=== PATIENT | male | born 1960 | race Caucasian/White ===

== ENCOUNTER 2018-08-09 22:14 | Inpatient (IN) ==
[2018-08-10] MEDS ORDERED: QUELICIN IV ONE (00:10)
[2018-08-10] MEDS ORDERED: AMIDATE IV ONE (00:10)
[2018-08-10] MEDS ORDERED: QUELICIN ONE (00:13)
[2018-08-10] MEDS ORDERED: AMIDATE ONE (00:13)
[2018-08-10] MEDS ORDERED: FENTANYL IV ONE (00:18)
[2018-08-10] MEDS ORDERED: FENTANYL 1,000 MICROGM in NS 80 ML IV SCH (00:30)
[2018-08-10] MEDS ORDERED: NS 1,000 ML IV ONE ×3 (00:30→06:04)
[2018-08-10] MEDS ORDERED: NS 1,000 ML ONE (00:33)
[2018-08-10 00:36] LABS: INR 1.8; PROTIME 22.2 Seconds (11.0-16.0)
[2018-08-10 00:37] LABS: PTT 51.5 Seconds (22.3-41.8)
[2018-08-10 00:37] LABS: ALLEN TEST YES; BE 1.7 mmoll (-3.0-3.0); BLOOD TYPE ARTERIAL; HCO3-(ACT) 26.1 mmoll (20.0-26.0); METHB 0.8 % (0.0-1.5); O2(CT) 11.1 mL/dL (15.0-23.0); PCO2(98.6) 37 mmHg (35-45); PO2(98.6) 52 mmHg (60-100); SAMPLE BLOOD; THB 9.2 g/dL (11.5-17.4); pH(98.6) 7.45 (7.35-7.45)
[2018-08-10 00:38] LABS: BASO# 0.02 X1000 (0.0-0.2); BASO% 0.2 % (0.0-0.8); EOS# 0.01 X1000 (0.0-0.7); EOS% 0.1 % (0.0-10.0); HEMATOCRIT 33.3 % (42.0-52.0); HEMOGLOBIN 9.9 g/dL (14.0-18.0); IMM GRAN# 0.08 X1000 (0.0-0.04); IMM GRAN% 0.7 % (0.0-0.5); LYMPH# 0.81 X1000 (1.2-3.4); LYMPH% 6.7 % (20.5-51.1); MCH 25.8 PG (27-31); MCHC 29.7 g/dL (33-37); MCV 86.7 FL (81-99); MONO# 0.47 X1000 (0.11-0.59); MONO% 3.9 % (1.7-9.3); MPV 10.6 FL (7.4-10.4); NEUT# 10.71 X1000 (1.4-6.5); NEUT% 88.4 % (42.2-75.2); PLT 278 X1000 (130-400); RBC 3.84 XMIL (4.7-6.1)
[2018-08-10 00:40] LABS: MODALITY NRB; O2HB 85.7 % (95.0-99.0)
[2018-08-10] MEDS ORDERED: ZOSYN 3.375 GM in NS 50 ML IV ONE (01:03)
[2018-08-10] MEDS ORDERED: VANCOMYCIN 1 GM/NS 1 GM/250 ML IVPB IV ONE (01:03)
[2018-08-10 01:21] LABS: AGAP 18; ALB/GLOB RATIO 0.3; ALKALINE PHOSPHATASE 213 U/L (32-122); BUN 41 mg/dL (8-22); CALCIUM 8.4 mg/dL (8.8-10.2); CHLORIDE 97 mmol/L (98-107); CK PROFILE 26 U/L (24-204); COSMO 292; ESTIMATED GFR > 60; GLUCOSE 72 mg/dL (70-104); GOT 30 U/L (10-34); GPT 16 U/L (10-44); MAGNESIUM 2.1 mg/dL (1.5-2.7); POTASSIUM 4.5 mmol/L (3.5-5.1); SODIUM 142 mmol/L (136-145); TCO2 27 mmol/L (25-35); TOTAL BILIRUBIN 0.61 mg/dL (0.20-1.00); TOTAL PROTEIN 7.8 g/dL (6.3-8.3)
--- NOTE | 2018-08-10 01:39 | PROVIDER DOCUMENTATION ---
This chart was entered by Geraldine Waller Scribe, acting as scribe for Brooks Britt MD. HPI-Respiratory General - General Stated Complaint: ams Time Seen by Provider: 08/09/18 23:57 Source: EMS Allergies/Adverse Reactions: Patient Allergies Allergy/AdvReac Type Severity Reaction Status Date / Time No Known Allergies Allergy Verified 08/10/18 00:25 - History of Present Illness-Resp Nature of Presenting Problem: 57 yom presents w.ems w/cc pt is living in [facility] after suffering 2 [id number] strokes. 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 pt is unres ponsive and non verbal. Review of Systems - Adult - REVIEW OF SYSTEMS - ADULT Constitutional: reports: see HPI, other (unresponsive). denies: chills, fever, fatique, night sweats Eyes: reports: no symptoms reported Ears, Nose, Mouth & Throat: reports: no symptoms reported Cardiovascular: reports: no symptoms reported Respiratory: reports: see HPI, shortness of breath (78 02 in er). denies: cough, hemoptysis, pleurisy, wheezing Gastrointestinal: reports: no symptoms reported Genitourinary: reports: no symptoms reported Musculoskeletal: reports: no symptoms reported Integumentary: reports: no symptoms reported Neurological: reports: no symptoms reported Psychiatric: reports: no symptoms reported Endocrine: reports: no symptoms reported Hematologic/Lymphatic: reports: no symptoms reported Allergic/Immunologic: reports: no symptoms reported All Other Systems: Reviewed and Negative Past History - Adult - PAST MEDICAL HISTORY-ADULT Review of Records: reports: Old Records Reviewed, Nursing Assessment Review, Medications Reviewed, Social history reviewed & non-contributory. Major Childhood Illnesses: reports: denies history Cardiovascular: reports: denies history Respiratory: reports: denies history Gastrointestinal: reports: denies history Obstetrical/Gynecological: reports: denies history Genitourinary: reports: denies history Musculoskeletal: reports: denies history Neurological: reports: CVA (x2) Endocrine/Immune: reports: denies history Other Conditions: reports: denies history - IMMUNIZATION STATUS Childhood Immunizations: See Nurse Assessment Flu Vaccine: See Nurse Assessment - FAMILY HISTORY Family History: reviewed, not pertinent Physical Exam-General - PHYSICAL EXAM-ADULT Initial Vital Signs Reviewed: Yes - CONSTITUTIONAL General Appearance: mild distress, thin, lethargic, other (unresponsive). negative: appears well, alert, obese, anxious, combative - EYES Eyes: PERRL/EOMI - HEAD, EARS, NOSE, MOUTH & THROAT HENMT: normocephalic/atraumatic, moist mucous membranes, normal ENT inspection - NECK Neck: non-tender, full range of motion, supple, normal inspection - RESPIRATORY Respiratory: chest non-tender, lungs clear, normal breath sounds - CARDIOVASCULAR Cardiovascular: normal peripheral pulses, regular rate, rhythm - GASTROINTESTINAL (ABDOMEN) Abdominal Exam: normal bowel sounds, non tender, soft - LYMPHATIC Lymphatic: no adenopathy - MUSCULOSKELETAL Back Exam: normal inspection, no CVA tenderness, no vertebral tenderness Extremity: normal range of motion, non-tender, normal inspection Peripheral Pulses: radial (R): 2+, radial (L): 2+ - SKIN Integumentary: normal color, normal turgor, warm/dry - NEUROLOGIC Neurologic: other (pt unresponsive). negative: heel cover splitter II-XII nml as tested, grossly normal, no motor/sensory deficits, abnormal cerebellar tests, abnormal heel cover splitter II-XII, aphasia, EOM palsy, facial droop - PSYCHIATRIC Psych/Mental Status: disoriented x 3. negative: normal mood/affect, normal thought content, normal thought process, oriented x 3, paranoid, tearful Progress - PLAN OF CARE/RESULTS Progress/Plan/Lab Results: Vital Signs - 8 hr 08/09/18 22:35 08/10/18 00:16 Temperature 97.4 F L Pulse Rate 101 H 101 H Respiratory Rate 18 18 Blood Pressure 94/64 O2 Sat by Pulse Oximetry 78 L 100 Laboratory Results - last 24 hr 08/10/18 08/10/18 08/10/18 00:01 00:05 00:05 WBC 12.10 H RBC 3.84 L Hgb 9.9 L Hct 33.3 L MCV 86.7 MCH 25.8 L MCHC 29.7 L RDW Std Deviation 16.0 H Plt Count 278 MPV 10.6 H Immature Gran % (Auto) 0.7 H Neut % (Auto) 88.4 H Lymph % (Auto) 6.7 L [place] % (Auto) 3.9 Eos % (Auto) 0.1 Baso % (Auto) 0.2 Immature Gran # (Auto) 0.08 H Neut # (Auto) 10.71 H Lymph # (Auto) 0.81 L [place] # (Auto) 0.47 Eos # (Auto) 0.01 Baso # (Auto) 0.02 PT INR PTT (Actin FS) Specimen Type ARTERIAL Sample Site R RADIAL pH 7.45 pCO2 37 pO2 52 L HCO3 26.1 H Base Excess 1.7 Oxyhemoglobin 85.7 L* ABG O2 Sat (Calculated) 11.1 L ABG O2 Saturation 88.0 L ABG Carboxyhemoglobin 1.70 ABG Methemoglobin 0.8 Leon Test YES A-a O2 Difference 615.0 Total Hemoglobin 9.2 L Lactate 4.90 H Liter Flow 15.0 Blood Gas Modality NRB FiO2 % 100.0 Sodium 142 Potassium 4.5 Chloride 97 L Carbon Dioxide 27 Anion Gap 18 BUN 41 H Creatinine 1.0 Estimated GFR/1.73 m2 > 60 BUN/Creatinine Ratio 41 Glucose 72 Calculated Osmolality 292 Calcium 8.4 L Magnesium 2.1 Total Bilirubin 0.61 AST 30 ALT 16 Alkaline Phosphatase 213 H Creatine Kinase 26 Troponin T Total Protein 7.8 Albumin 2.0 L Globulin 5.8 Albumin/Globulin Ratio 0.3 Plasma Lactate 08/10/18 08/10/18 08/10/18 00:05 00:05 00:05 WBC RBC Hgb Hct MCV MCH MCHC RDW Std Deviation Plt Count MPV Immature Gran % (Auto) Neut % (Auto) Lymph % (Auto) [place] % (Auto) Eos % (Auto) Baso % (Auto) Immature Gran # (Auto) Neut # (Auto) Lymph # (Auto) [place] # (Auto) Eos # (Auto) Baso # (Auto) PT 22.2 H INR 1.80 PTT (Actin FS) 51.5 H Specimen Type Sample Site pH pCO2 pO2 HCO3 Base Excess Oxyhemoglobin ABG O2 Sat (Calculated) ABG O2 Saturation ABG Carboxyhemoglobin ABG Methemoglobin Leon Test A-a O2 Difference Total Hemoglobin Lactate Liter Flow Blood Gas Modality FiO2 % Sodium Potassium Chloride Carbon Dioxide Anion Gap BUN Creatinine Estimated GFR/1.73 m2 BUN/Creatinine Ratio Glucose Calculated Osmolality Calcium Magnesium Total Bilirubin AST ALT Alkaline Phosphatase Creatine Kinase Troponin T 0.029 Total Protein Albumin Globulin Albumin/Globulin Ratio Plasma Lactate 5.0 H Orders Category Date Time Status Cardiac Monitoring DIRECTED Care 08/09/18 23:57 Active IV Insertion ORDERED Care 08/09/18 23:57 Completed Notify MD of + Sepsis Screen NOW Care 08/09/18 23:57 Active Notify Physician As Ordered Care 08/09/18 23:57 Active CHEST-1 VIEW [RAD] Stat Exams 08/09/18 23:57 Taken ABG [RESP] Routine Lab 08/09/18 23:58 Completed BLOOD CULTURE [BLDCUL] Stat Lab 08/10/18 00:05 Results CBC WITH DIFF [HEME] Stat Lab 08/10/18 00:05 Completed CK PROFILE [SP CHEM] Stat Lab 08/10/18 00:05 Completed COMPREHENSIVE METABOLIC PANEL [CHEM] Stat Lab 08/10/18 00:05 Completed LACTATE, PLASMA [CHEM] Stat Lab 08/10/18 00:05 Completed MAGNESIUM [CHEM] Stat Lab 08/10/18 00:05 Completed PROTIME WITH INR [COAG] Stat Lab 08/10/18 00:05 Completed PTT [COAG] Stat Lab 08/10/18 00:05 Completed TROPONIN T Stat Lab 08/10/18 00:05 Completed URINALYSIS W/POSS RFLX CULT [URINALYSIS] Stat Lab 08/09/18 23:57 Uncollected 0.9% Sodium Chloride Inj [Ns] 1,000 ml Med 08/10/18 00:33 Discontinued .ROUTE As directed 0.9% Sodium Chloride Inj [Ns] 1,000 ml Med 08/10/18 00:30 Discontinued IV 999 mls/hr 0.9% Sodium Chloride Inj [Ns] 80 ml Med 08/10/18 00:30 Active Fentanyl 1,000 microgm IV As Directed mls/hr Etomidate [Amidate] Med 08/10/18 00:10 Discontinued 20 mg IV NOW ONE Etomidate [Amidate] Med 08/10/18 00:13 Discontinued 40 mg .ROUTE .STK-MED ONE Fentanyl Med 08/10/18 00:18 Discontinued See Dose Instructions IV NOW ONE Piperacillin/Tazobactam [Zosyn] 3.375 gm Med 08/10/18 01:03 Discontinued 0.9% Sodium Chloride Inj [Ns] 50 ml IV NOW Succinylcholine [Quelicin] Med 08/10/18 00:10 Discontinued 100 mg IV NOW ONE Succinylcholine [Quelicin] Med 08/10/18 00:13 Discontinued 200 mg .ROUTE .STK-MED ONE Vancomycin 1 gm/Ns Med 08/10/18 01:03 Active 1 gm in 250 ml IV NOW Oxygen Device Stat Oth 08/09/18 23:57 Completed Result Diagrams: 08/10/18 00:05 08/10/18 00:05 - EKG 1 Time of EKG reading by physician:: 23:48 EKG Read and Signed by:: Brooks Britt EKG Interpretation (*Must complete 3 of following elements*): Abnormal Rate: 88 Rhythm: SR w/occasional premature ventricular complexes QRS: normal ND Interval: normal Departure - Departure Date of Disposition Decision: 08/10/18 Time of Disposition Decision: 01:38 DIAGNOSIS: Pneumonia Qualifiers: Pneumonia type: due to unspecified organism Laterality: right Lung location: unspecified part of lung Qualified Code(s): J18.9 - Pneumonia, unspecified organism Disposition: ADMITTED INPATIENT 09 Certified Medical Emergency: Emergent Condition: Critical Referrals and Follow-Ups: None,PCP [Primary Care Provider] - - Critical Care Note This patient required my direct & personal management of CC.: No Attestation - Physician/ AMARI Attestation Patient care was provided by Advanced Practice Provider:: No The physician spent face to face time with patient:: Yes Advanced Practice Provider documentation review:: Supervising physician onsite and consulted in the evaluation and care of this patient. The physician did have a face to face encounter with the patient. This chart was documented by the indicated scribe, (Geraldine Waller Scribe) and accurately reflects the services I performed and decisions made by me, Brooks Suero MD, as attested by the provider's signature.
[2018-08-10] MEDS ORDERED: VANCOMYCIN IV PER PHARMACY MISC SCH (02:35)
[2018-08-10] MEDS ORDERED: TYLENOL PO PRN (02:35)
[2018-08-10] MEDS ORDERED: MORPHINE IV PRN ×2 (02:35→09:21)
[2018-08-10] MEDS ORDERED: ZOFRAN IV PRN (02:35)
[2018-08-10] MEDS ORDERED: LOVENOX SUBQ SCH (02:35)
[2018-08-10] MEDS: DIPRIVAN 1% 1,000 MG/100 ML BOTTLE IV SCH ×2 (03:00→05:54)
[2018-08-10] MEDS ORDERED: SODIUM CHLORIDE 0.9% INJ SCH (03:15)
[2018-08-10] MEDS ORDERED: PROTONIX IV SCH (03:15)
[2018-08-10] MEDS: NS 1,000 ML IV SCH ×3 (03:37→13:56)
[2018-08-10] MEDS ORDERED: VANCOMYCIN 500 MG/NS 500 MG/100 ML IVPB IV ONE (04:00)
[2018-08-10 04:33] LABS: INR 2.28; PROTIME 26.7 Seconds (11.0-16.0)
[2018-08-10 04:38] LABS: ESTIMATED GFR > 60
[2018-08-10 04:44] LABS: AGAP 18; ALB/GLOB RATIO 0.2; ALBUMIN 1.2 g/dL (3.5-5.0); ALKALINE PHOSPHATASE 156 U/L (32-122); BUN 41 mg/dL (8-22); CALCIUM 7.3 mg/dL (8.8-10.2); CHLORIDE 105 mmol/L (98-107); CK PROFILE 56 U/L (24-204); COSMO 295; CREATININE 1.1 mg/dL (0.7-1.2); GLUCOSE 72 mg/dL (70-104); GOT 25 U/L (10-34); GPT 13 U/L (10-44); POTASSIUM 3.9 mmol/L (3.5-5.1); SODIUM 144 mmol/L (136-145); TCO2 21 mmol/L (25-35); TOTAL BILIRUBIN 0.45 mg/dL (0.20-1.00); TOTAL PROTEIN 6.3 g/dL (6.3-8.3)
[2018-08-10 04:57] LABS: ALLEN TEST YES; BE -5.5 mmoll (-3.0-3.0); BLOOD TYPE ARTERIAL; HCO3-(ACT) 20.7 mmoll (20.0-26.0); METHB 1.1 % (0.0-1.5); O2(CT) 11.5 mL/dL (15.0-23.0); O2HB 96.5 % (95.0-99.0); PCO2(98.6) 39 mmHg (35-45); PO2(98.6) 131 mmHg (60-100); SAMPLE BLOOD; SAO2 98.8 % (95.0-100.0); SRATE 14 BPM; THB 8.3 g/dL (11.5-17.4); TVOL 550 mL; pH(98.6) 7.32 (7.35-7.45)
[2018-08-10 04:58] LABS: BASO# 0.01 X1000 (0.0-0.2); BASO% 0.1 % (0.0-0.8); EOS# 0.04 X1000 (0.0-0.7); EOS% 0.4 % (0.0-10.0); HEMATOCRIT 25.3 % (42.0-52.0); HEMOGLOBIN 8.1 g/dL (14.0-18.0); IMM GRAN# 0.77 X1000 (0.0-0.04); IMM GRAN% 8.1 % (0.0-0.5); LYMPH# 0.69 X1000 (1.2-3.4); LYMPH% 7.2 % (20.5-51.1); MCH 30.1 PG (27-31); MCV 94.1 FL (81-99); MONO# 0.25 X1000 (0.11-0.59); MONO% 2.6 % (1.7-9.3); MPV 11.1 FL (7.4-10.4); NEUT# 7.78 X1000 (1.4-6.5); NEUT% 81.6 % (42.2-75.2); PLT 147 X1000 (130-400); RBC 2.69 XMIL (4.7-6.1); RDW 15.5 % (11.5-14.5); WBC 9.54 X1000 (4.8-10.8)
[2018-08-10 04:58] LABS: MODALITY VENTILATOR
--- NOTE | 2018-08-10 05:02 | HISTORY AND PHYSICAL ---
REASON FOR ADMISSION: Found unresponsive and hypoxic yesterday night. HISTORY OF PRESENT ILLNESS: Mr. Kyle Bueno is an unfortunate 57-year-old man who has had 2 CVAs since September of last year resulting in permanent disability and subsequent 150- pound weight loss. He is now completely bedbound and he is a resident of one of our local nursing homes. He is barely responsive and he is in a contracted state. He is supposed to be under the care of hospice and he has always been on 2 L nasal cannula. Last night they found him unresponsive on his 2 L nasal cannula, but his O2 saturation was 44%. EMS was called. They put him on a nonrebreather. That bumped his O2 saturations to 79. However, the patient continued to be tachypneic and then subsequently required intubation. He is currently on a ventilator. His O2 saturation is 96% and this is on 100% FIO2. Unfortunately, the patient is not able to give me any history because he is sedated and there is no family member at bedside. Information was obtained from the intermediate records and from his nurse at bedside and ER physician. REVIEW OF SYSTEMS: Cannot be obtained. ALLERGIES: No known allergies. HOME MEDICATIONS: He is supposed to be on trazodone 50 mg daily, ?25 mg at bedtime, aspirin 325 mg daily, lorazepam 0.5 mg q.4, pravastatin 40 mg daily, Colace 100 mg daily, gabapentin 300 mg daily, MiraLAX 17 g daily, Remeron 15 mg daily, morphine sulfate 5 mL every 2 hours p.r.n., hydrocodone 10 mg daily, amlodipine 10 mg daily, Flomax 0.4 mg daily. PAST MEDICAL HISTORY: Notable for prior CVAs, hyperlipidemia, hypertension, BPH. FAMILY HISTORY: Cannot be obtained. SOCIAL HISTORY: Patient used to be a heavy smoker prior to his first stroke in September of last year. SURGICAL HISTORY: Cannot be obtained. DATA: White count 12,000, hemoglobin 10, hematocrit 33, platelets 278,000, 88% neutrophils. BUN 41, creatinine 1.0, calcium 8.4, alkaline phosphatase 203. Troponin 0.029. Lactate 5.0. PT is 32, INR 1.8, PTT 51. Blood gases: pH 7.45, pCO2 37, pO2 52, bicarbonate 26 on 100% nonrebreather at that time. Chest film shows right multilobar infiltrate and possible left lingular infiltrate. PHYSICAL EXAMINATION: GENERAL APPEARANCE: He is severe cachectic, a middle-aged man who appears older than his stated age. He is sedated, but will open his eyes transiently, but does not focus on anything in particular. He has an ET tube in place. HEAD AND EYES: Head is normocephalic, however, he has bitemporal wasting. Eyes are sunken in. Pupils are reactive to light. No nystagmus noted. Anicteric, not pale. VITAL SIGNS: Blood pressure 94/56, heart rate 85, respirations 18, temperature 97.4. He is 94% on mechanical ventilation, FIO2 100%. ENT: Exam was not done. He has no central cyanosis visualized. His lips are dry. NECK: Supple. No JVD, carotid bruits or thyromegaly. He has severely decreased skin turgor. CHEST: Coarse crepitations in the entire right lung with no wheezes. Decreased air entry on the right side, but does have a few crepitations in the upper regions of his lungs. CARDIOVASCULAR: First and second heart sounds heard. No gallops, murmurs or rubs. Rhythm is regular. ABDOMEN: Scaphoid, soft. No masses or organomegaly. Bowel sounds are hypoactive. RECTAL: Exam is deferred at this time. EXTREMITIES: The patient has barely palpable pulses distally, regular and symmetrical. No edema, clubbing or peripheral cyanosis. The patient has stage 4 decubitus of the right hip with tunneling and foul-smelling purulent necrotic material in the center of the ulcer. The patient has another stage 3-4 ulceration of the right lateral malleolar area stage 2-3 ulcer on the right plantar surface of his foot. I did not turn him over to evaluate the sacral area. NEUROLOGIC: The patient is contracted. Cannot really get any meaningful neurologic exam. SKIN: As above. He has severely decreased turgor. MUSCULAR: He has contractures of his hips, knees and the MCP points of his hands. There is diffuse sarcopenia noted. ASSESSMENT: 1. Early onset sepsis secondary to pneumonia. 2. Pneumonia, probably aspiration mechanism. 3. Severe protein calorie malnutrition. 4. Severe dehydration. 5. Prior chronic obstructive pulmonary disease. 6. History of hypertension. 7. Stage 4 decubitus ulcer of the right hip. 8. Vascular dementia from prior cerebrovascular accidents. 9. Acute respiratory failure secondary to aspiration pneumonia. 10.Anemia of chronic inflammation. PLAN: The patient will be started on the ventilator and will consult Pulmonology to assist with vent management. For now the patient will be covered for nosocomial pathogens with vancomycin and Zosyn. Breathing treatments will also be administered around the clock. The patient is showing signs of early onset sepsis and IV crystalloids will be given. Lactate levels will be tracked to document improvement. Once normalized, discontinue subsequent lactate levels. ABGs and chest films will be done daily. One is currently pending and will be modified accordingly. This patient's prognosis to me seems to be dismal in light of not only pneumonia, but his overall clinical condition. End of life issues need to be discussed more appropriately with the mother who is his next of kin. The patient's coagulation profiles are mildly elevated and this could hint at early onset DIC. Due to patient's severe malnourished state, I would recommend possibly in the short term tube feedings and consult a gypsum calciner for further input. TOTAL CRITICAL CARE TIME: Greater than 45 minutes. cc: Khoi Rashid MD MTDD
[2018-08-10] MEDS: DUONEB (A & A) INH SCH ×3 (05:23→15:56)
[2018-08-10] MEDS: ZOSYN 3.375 GM in NS 50 ML IV SCH ×2 (06:07→13:52)
[2018-08-10] MEDS: LEVOPHED 8 MG in D5 1/2 NS 250 ML IV SCH ×2 (06:15→13:57)
--- NOTE | 2018-08-10 07:14 | Diag Imaging Result Doc PS360 ---
EXAM: CHEST-1 VIEW 08/09/2018 HISTORY: sob TECHNIQUE: AP portable at 0026 COMMENT: There is an endotracheal tube with its tip at the thoracic inlet. There are dense coarse opacities throughout the right lung and to a lesser extent in the left lower lobe. The heart size and pulmonary vascularity are within normal limits. IMPRESSION: Severe bronchopneumonia. Advise follow-up until clear. Electronically signed by Chuck Gonzalez 08/10/2018 7:11 AM
--- NOTE | 2018-08-10 07:59 | EKG Report ---
Test Performed on : 08/09/2018 11:48:17 PM Test Reason : Blood Pressure : / mmHG Vent. Rate : 088 BPM Atrial Rate : 088 BPM P-R Int : 138 ms QRS Dur : 086 ms QT Int : 356 ms P-R-T Axes : 069 080 064 degrees QTc Int : 430 ms Sinus rhythm. with occasional premature ventricular complexes. Otherwise normal ECG No previous ECGs available Unconfirmed Result
[2018-08-10 08:31] LABS: URINE SOURCE CATH
[2018-08-10] MEDS ORDERED: ASPIRIN PO SCH (09:00)
[2018-08-10 09:14] LABS: BILIRUBIN URINE NEGATIVE (NEGATIVE); BLOOD URINE LARGE (NEGATIVE); COLOR ORANGE; GLUCOSE URINE NEGATIVE (NEGATIVE); KETONE URINE NEGATIVE (NEGATIVE); LEUKOCYTES URINE LARGE (NEGATIVE); NITRITE URINE NEGATIVE (NEGATIVE); PH URINE 5.5; PROTEIN URINE 70 mg/dL (NEGATIVE); SP GRAVITY URINE 1.019; TURBIDITY URINE TURBID (CLEAR); UROBILINOGEN URINE NORMAL (NORMAL)
[2018-08-10 09:15] LABS: UR EPITHELIAL CELLS <10 /HPF (<10); URINE BACTERIA 2+ /HPF; URINE RBC TNTC /HPF (<10); URINE WBC TNTC /HPF (<10)
[2018-08-10] MEDS ORDERED: SOLU-CORTEF IV ONE (09:20)
--- NOTE | 2018-08-10 09:24 | Diag Imaging Result Doc PS360 ---
EXAM: CHEST-PORTABLE 08/10/2018 HISTORY: vent TECHNIQUE: AP portable at 0909 COMMENT: The endotracheal tube is again noted at thoracic inlet. There is bilateral diffuse alveolar opacity particularly in the right upper lobe. Compared to the previous study of this date at 0026, there has been worsened opacification of the left lower lobe. IMPRESSION: Worsening pneumonia plus minus pulmonary edema. Electronically signed by Chuck Gonzalez 08/10/2018 9:22 AM
--- NOTE | 2018-08-10 09:26 | CONSULTATION ---
DATE OF CONSULTATION: 08/10/2018 CHIEF COMPLAINT: Difficulty with Fajardo catheter placement. HISTORY OF PRESENT ILLNESS: Mr. Guzman is a 57-year-old with history of 2 recent cerebrovascular accidents since September 2017, resulting in permanent disability and a substantial weight loss of approximately 150 pounds. He is a bed-bound resident of a local alf. The patient presented to the emergency room overnight due to hypoxemia with an O2 saturation of 44%. EMS was called, and he was transferred to the emergency room, where he was placed on a non-rebreather and his oxygen saturations improved. The patient was tachypneic and required intubation and to be placed on a ventilator. The patient's labs were sent, which showed a creatinine of 1.1 with a white blood cell count of 9 and a lactate of 5.7. The patient received multiple boluses of IV fluids to hypotension; however, patient has not been able to void, and multiple attempts for catheter placement were performed in the emergency room as well as in the ICU and described having a significant obstruction within the proximal urethra. Urology was consulted for further recommendations. No prior urologic evaluations were found in the computer, and the patient is intubated so unable to obtain any history. No family member at bedside. ALLERGIES: No known drug allergies . HOME MEDICATIONS: 1. Trazodone 50 mg. 2. Aspirin 325 mg 3. Lorazepam 0.5 mg q.4 h. 4. Pravastatin 40 mg daily. 5. Colace 100 mg daily. 6. Gabapentin 300 mg daily. 7. MiraLAX 17 g daily. 8. Remeron 50 mg daily. 9. Morphine sulfate 5 mL q.2 h. p.r.n. for pain. 10. Hydrocodone 10 mg daily. 11. Amlodipine 10 mg daily. 12. Flomax 0.4 mg daily. PAST MEDICAL HISTORY: 1. Cerebrovascular accident x2. 2. Hyperlipidemia. 3. Hypertension. 4. BPH. SOCIAL HISTORY: Unable to obtain. FAMILY HISTORY: Unable to obtain. PAST SOCIAL HISTORY: Heavy smoker prior to his first stroke back in September. REVIEW OF SYSTEMS: Unable to obtain due to intubation. PHYSICAL EXAMINATION: Vital Signs: Temperature 97 degrees, heart rate 82, blood pressure 56/47, oxygen saturation 97% on the ventilator. General: A Severely cachectic middle- aged male, who is sedated and unable to adequately open his eyes. Endotracheal tube is in place. The patient remains on the ventilator. HEENT: Normocephalic, atraumatic. Pupils equal and nonreactive to light and slightly dilated. Mucous membranes moist. Neck: Trachea midline. Endotracheal tube in place. Respiratory: On the ventilator. No audible wheezes, but coarse breath sounds in the lower lung rosa. Cardiovascular: S1, S2 heart sounds. No evidence of tachycardia. Abdomen: Soft, nontender, nondistended. No palpable hepatosplenomegaly. Genitourinary: No suprapubic tenderness. Uncircumcised phallus with hypospadiac urethral meatus. Bilateral testicles palpated without masses or nodularity. Rectal: Digital rectal exam showed enlarged prostate measuring approximately 35 g. No palpable rectal masses. Extremities: The patient had evidence of contractures of the upper and lower extremities. Good peripheral pulses. Evidence of a stage IV decubitus ulcer of the right hip with foul-smelling drainage and necrotic material. Several other ulcerations were seen of the lower extremity. Neurologic: The patient is sedated and slightly contracted. LABORATORY DATA: White blood cell count 9.5, hemoglobin 8.1, hematocrit 25.3, platelets 147,000. INR 2.28, PT 26.7, PTT 65. Sodium 144, potassium 3.9, chloride 105, bicarbonate 21, BUN 41, creatinine 1.1, glucose 72, calcium 7.3. Lactate 5.6. ASSESSMENT AND PLAN: Mr. Guzman is a 57-year-old with history of tobacco abuse and cerebrovascular accidents x2, who presented with hypoxemia and was found to have pneumonia. The patient is severely cachectic and has lost a significant amount of weight over the past several months. Nursing had attempted to try to place a catheter on several attempts both in the emergency room as well as the ICU and had difficulty. Urology was consulted for further recommendations. I attempted to place a [place] silicone catheter and met resistance within the posterior urethra, likely a bulbar urethral stricture. I was able to place a ZIPwire through the urethra and coiled within the bladder. I then was able to pass the [place] silicone catheter over the wire and into the bladder with return of clear yellow urine. Inflated the balloon with 10 mL of sterile water. A small amount of blood was seen from the meatus. The patient does have an elevated INR at 2.28 of unknown origin. The patient does take aspirin, but Nursing denies any other blood thinners. We will continue to monitor. No obvious clots were seen within the catheter. A small amount of urine was seen returning. No obvious suprapubic tenderness was felt on the patient. The patient's creatinine is 1.1. We will send urine for urinalysis and possible culture, depending on results. Continue management in the ICU. We plan to keep indwelling catheter for at least 3 days and likely until patient is more awake. We will continue to monitor. Please call with questions or concerns. cc: Abdoulaye Foley MD MTDD
[2018-08-10 09:47] LABS: URINE CASTS NONE SEEN; URINE CRYSTALS NONE SEEN; URINE YEAST NONE SEEN
[2018-08-10 09:48] LABS: URINE SMALL ROUND CELLS NONE SEEN
--- NOTE | 2018-08-10 10:24 | PROGRESS NOTE ---
DATE: 08/10/2018 SUBJECTIVE: This morning Mr. Guzman was seen in the ICU. No family member was at the bedside. Apparently Mr. Guzman is a resident of [facility]. He has had 2 CVAs, last 1 being in September and subsequently has become bed-bound and lives at a correction. I am told by the nurse that he was at some point DNR and even on hospice care. Was found in his room in the correction with O2 saturation of 44 and was completely unresponsive. I am not sure what his baseline is after the strokes, but it appears that he is on 2 L of oxygen at home and he is bed-bound. In any case, upon presenting to the emergency department, he was found to have an O2 saturation of about 78%, was initially tried on BiPAP but did not work, so he was subsequently intubated which improved his O2 saturation. This morning he continues to be intubated. He is hypotensive and extremely sick looking. OBJECTIVE: General: Mr. Guzman is a 57-year-old male. He is in bed. He looks remarkably emaciated and chronically ill-looking. He is currently intubated. Seems to be synchronizing well with the ventilator. HEENT: Mucosa is pink and moist. Anicteric. Acyanotic. Neck: Supple. I did not see any JVD. Chest: Air entry is bilaterally reduced but more so to the right lung field. There is some adequate movement of air on the left side. There are crackles to the posterior lung rosa, mostly on the right side. Cardiovascular: Regular rate and rhythm. There is occasional extrasystolic beats. No murmurs. Abdomen: Soft. Bowel sounds present. Extremities: No pedal edema. There are multiple dressings over the lower extremities. I did not look at the wound myself, but there are pictures in his chart. He seems to have a very large ulcer over the right hip. Also, there is an ulcer over the lateral malleolus of the right ankle and it appears to be also 1 on the left. Does seem to have some pink granulation tissue. The 1 on the hip however seems to have some slough in it at the base subparagraph. HAT SPRAYER: The patient is currently intubated and sedated on propofol. He would however withdraw from pain. Pupils are pinpoint and sluggishly reactive. I did not get any cough and the patient has a generalized spastic contraction. IMAGING STUDIES: 1. A chest x-ray this morning shows pneumonia +/- pulmonary edema. 2. An EKG which was done yesterday showed a normal sinus rhythm with frequent PVCs. LABORATORY DATA: WBC is now 9.54, hemoglobin is 8.1, platelet count of 147,000. Chemistry is also reviewed. Creatinine is 1.1. Plasma lactate was 5.6 this morning. So far blood cultures are still pending. There have been some cultures of the wounds, which are also still pending. CURRENT MEDICATIONS: Vancomycin per pharmacy protocol and Zosyn. The patient is also on Lovenox and PPI and has just been started also on stress doses of Solu- Cortef. The patient is on norepinephrine as a pressor. ASSESSMENT: 1. Refractory septic shock. The patient continues to be on adequate fluid resuscitation. Still on norepinephrine. Blood pressures continue to be extremely marginal. We are going to give her stress doses of steroids to see if that helps. 2. Severe lactic acidosis secondary to septic shock. 3. Acute hypoxemic respiratory failure. The patient is currently intubated. 4. Multilobe pneumonia, more predominant in the right lung, questionable for aspiration. Patient is on antibiotics. 5. Stage IV decubitus ulcer, questionable if that is also infected. Wound Care has been consulted. Cultures have also been done. 6. Clinical volume depletion. Patient is getting IV fluids. 7. History of multiple strokes resulting in patient being bed-bound and moribund state. PLAN: In general Mr. Guzman continues to be extremely sick and carries an extremely poor prognosis at this point. We are going to continue with the adequate fluid resuscitation, pressors, antibiotics and steroids and I will be pending to discuss prognosis and care going forward with the son later today. There is a consult for both Pulmonary Medicine and Infectious Disease to see patient as well. Critical time spent 45 minutes cc: MD FLORECITA Guallpa
[2018-08-10] MEDS: ATIVAN IV PRN ×2 (10:57→15:39)
--- NOTE | 2018-08-10 15:04 | INFECTIOUS DISEASE CONSULT REP ---
DATE: 08/10/2018 CONCLUSION: The patient has bilateral pneumonia and, according to his urinalysis, he has a urinary tract infection. In addition, he has a right hip and right lateral ankle ulcerated areas, which may well be infected also. RECOMMENDATIONS: I agree with treating the patient with vancomycin and Zosyn pending culture results. The patient is unable to provide a history and no family member is present. PAST MEDICAL HISTORY: Positive for strokes, hyperlipidemia, hypertension, and benign prostatic hypertrophy. SURGICAL HISTORY: Unobtainable. FAMILY HISTORY: Not obtained. SOCIAL HISTORY: The patient previously was a heavy smoker, and quit since he had 2 strokes last year. LABORATORY AND X-RAY STUDIES: CBC shows a white count of 9540, hemoglobin 8.1, and platelet count 147,000. Creatinine is 1.1. GFR is greater than 60. Liver function studies are normal, except for an alkaline phosphatase of 156. Urinalysis shows white blood cells and bacteria. Chest x-ray shows bilateral pneumonia. Blood, urine, right hip, right ankle cultures are pending. PHYSICAL EXAMINATION: Vital Signs: Temperature is 98 degrees, pulse 89, respirations 19, blood pressure 88/59. General: This is a cachectic-appearing, middle-aged male. He is in no acute distress. He is lying in the position. He is intubated and sedated. The patient is 6 feet 2 inches tall and weighs 109 pounds Head, eyes, ears, nose, and throat: As mentioned above, the patient has an orotracheal tube in place and he is sedated. There is no drainage from the nose or ears. Neck: No stiffness. Lungs: Clear to auscultation. Cardiovascular: Heart rate is regular. Abdomen: Soft and not tender. Extremities: The patient's right hip and right lateral ankle ulcers have been photographed. The ulcers appear to be deep they do have a beefy red tissue. I did not see any I did not see any necrotic tissue or purulence. Neurologic: The patient is obtunded. Patient is lying in the position. He does not respond to verbal stimuli. There is no tremor. PLAN: For now, I will go ahead and continue with his antibiotics. Patient's comorbidities I am unable to determine. Thank you for the consult. cc: Benton Tapia MD
[2018-08-10 16:24] LABS: ALLEN TEST YES; BLOOD TYPE ARTERIAL; HCO3-(ACT) 19.1 mmoll (20.0-26.0); METHB 1.3 % (0.0-1.5); PCO2(98.6) 47 mmHg (35-45); SAMPLE BLOOD; SAO2 80.3 % (95.0-100.0); SRATE 14 BPM; THB 9.1 g/dL (11.5-17.4); TVOL 550 mL; pH(98.6) 7.24 (7.35-7.45)
[2018-08-10 16:28] LABS: MODALITY VENTILATOR; O2HB 78.1 % (95.0-99.0); PO2(98.6) 47 mmHg (60-100)
[2018-08-10] MEDS ORDERED: LASIX IV ONE (16:34)
[2018-08-10] MEDS ORDERED: SOLU-CORTEF IV SCH (17:30)
[2018-08-10 17:38] VITALS: BP 88/60
[2018-08-10] MEDS ORDERED: EPINEPHRINE SYRINGE ONE (20:00)
[2018-08-10] MEDS ORDERED: D50W SYRINGE ONE (20:00)
[2018-08-10] MEDS ORDERED: NS ONE (20:00)
[2018-08-10] MEDS ORDERED: SODIUM BICARBONATE 8.4% ONE (20:00)
--- NOTE | 2018-08-10 21:04 | CONSULTATION ---
DATE OF CONSULTATION: 08/10/2018 REQUESTING PROVIDER: Dr. Rashid. REASON FOR CONSULTATION: Medication management, pneumonia. HISTORY OF PRESENT ILLNESS: This is a 57-year-old male with a basically unknown medical history. All I find in the E-chart includes cerebrovascular accidents, hyperlipidemia, hypertension, benign prostatic hyperplasia, anemia, COPD, and vascular dementia. He may have chronic hypoxemic respiratory failure too as he is on continuous oxygen at 2 L. He also has ongoing stage IV decubitus ulcers on the right hip and right foot. He presented to the ER last night via EMS with unresponsiveness and severely low oxygen saturation at 40s on a nasal cannula at 2 L. He was intubated in the ER. Initial workup revealed severe bronchopneumonia, severe lactic acidosis, septic shock, severe dehydration, severe protein-calorie malnutrition, and anemia. He has been admitted to the ICU for further evaluation and management. At the time of my examination, patient is intubated and unresponsive without sedation. There is no family at the bedside. All information is obtained from the E-chart. PAST MEDICAL HISTORY: 1. Cerebrovascular accident x2 since September 2017, resulting in permanent disability and subsequent 150 pound weight loss. 2. COPD. 3. Likely chronic hypoxemic respiratory failure, on continuous oxygen at 2 L. 4. Hyperlipidemia. 5. Hypertension. 6. Benign prostatic hyperplasia. 7. Anemia. 8. Vascular dementia, secondary to previous cerebrovascular accident. 9. Stage IV decubitus ulcers on the right hip and right foot. SOCIAL HISTORY: The [facility] a [facility]. He is completely bed-bound. He is a former heavy smoker and quit in September 2017. FAMILY HISTORY: Unable to be obtained. ALLERGIES: No known drug allergies. REVIEW OF SYSTEMS: Unable to be obtained. PHYSICAL EXAMINATION: Vital Signs: Temperature 97.0 degrees, blood pressure 82/52, pulse 89, respiration rate 16, oxygen saturation 97% on AC mechanical ventilator, with spontaneous rate 14, FiO2 100%, tidal volume 550, and PEEP 5. General: Severely malnourished. No stress noted at this time. HEENT: Atraumatic. Trachea midline. Mucosa pink and dry with some small fresh blood clots on the backside of the oral cavity. Respiratory: Mechanically ventilated. Auscultation reveals crackles and rhonchi bilaterally. Cardiovascular: Regular rate and rhythm. Gastrointestinal: Bowel sounds hypoactive in all 4 quadrants. Soft, flat. Extremities: Bilateral upper extremity contractions noted with right side worse than the left side. Right foot is covered with dressing from the ankle to the whole lateral external side of the foot. No pedal edema. No cyanosis. Cool to touch. Dorsalis pedis 2+. Neurologic: Unresponsive. LAB DATA: White blood cells 9.54, hemoglobin 8.1, hematocrit 25.3, platelet 147,000. Sodium 144, potassium 3.9, chloride 105, carbon dioxide 21, BUN 41, creatinine 1.1, glucose 72, plasma lactate 4.3. ABGs: pH 7.32, pCO2 of 39, pO2 131, HC03 20.7, base excess -5.5, oxyhemoglobin 96.5, and lactate 5.70. IMAGING DATA: Chest x-ray reveals worsening pneumonia, minus/plus pulmonary edema. ASSESSMENT: This is a 57-year-old male with medical history including cerebrovascular accidents, chronic obstructive pulmonary disease, likely chronic hypoxemic respiratory failure, hyperlipidemia, hypertension, benign prostatic hyperplasia, anemia, vascular dementia, and stage IV decubitus ulcers. He has been admitted to the ICU with: 1. Acute on chronic hypoxemic respiratory failure, requiring intubation. 2. Severe bronchopneumonia. 3. Severe lactic acidosis. 4. Septic shock. 5. Severe dehydration. 6. Severe protein-calorie malnutrition. 7. Anemia. PLAN: 1. Continue AC mechanical ventilator. 2. Continue fluid resuscitation, pressor, antibiotics, steroid, and bronchodilators. 3. Follow up with ABGs, CBC, BMP and chest x-ray. 4. Poor prognosis. Patient is under the care of hospice. 5. Continue gastrointestinal and deep venous thrombosis prophylaxis. 6. Further recommendations pending hospital course. Thank you for the courtesy of this consult. Dictated by TANA Elizabeth for Patrick Mayers MD cc: TANA Elizabeth MD [facility]
[2018-08-11] MEDS ORDERED: VANCOMYCIN 1 GM/NS 1 GM/250 ML IVPB IV SCH (04:00)
--- NOTE | 2018-08-11 15:37 | DISCHARGE SUMMARY ---
ADMISSION DATE: 08/10/2018 DISCHARGE DATE: 08/11/2018 DATE OF : 1960. DATE OF ADMISSION: 08/09/2018. DATE OF : 08/10/2018. TIME OF : 1713. CONSULTATION DURING THIS ADMISSION: Pulmonary Medicine was consulted, the patient was seen by Dr. Mayers. Infectious Disease was consulted, the patient was seen by Dr. Tapia. Urology was consulted, the patient was seen by Dr. Foley. INVASIVE PROCEDURES DONE DURING THIS ADMISSION: A Fajardo catheter was inserted by Dr. Foley. IMAGING STUDIES OF SIGNIFICANCE: A chest x-ray did show severe bronchopneumonia. A repeat chest x-ray this morning continues to show worsening pneumonia plus or minus pulmonary edema. ADMISSION DIAGNOSES: 1. Early onset sepsis secondary to pneumonia. 2. Pneumonia probably aspiration mechanism. 3. Severe protein calorie malnutrition. 4. Dehydration. DIAGNOSES AT THE TIME OF : 1. Refractory septic shock. 2. Severe lactic acidosis secondary to septic shock. 3. Acute hypoxemic respiratory failure, the patient needed to be intubated. 4. Multifocal pneumonia predominantly in the right, questionable for aspiration. 5. Stage 4 decubitus ulcer, questionable infected wounds. 6. Clinical volume depletion. 7. History of multiple strokes resulting in bed-bound and moribund state. 8. Failure to thrive with a BMI of 14.0. PRESENTING COMPLAINT: The patient found unresponsive and hypoxemic. HISTORY OF PRESENTING COMPLAINT: Mr. Guzman is a 57-year-old male who is known to have multiple strokes recently admitted to the shelter. He has lost about 150 pounds, was found in his bed in the shelter with an O2 saturation of 44% with the patient not responding. He was subsequently brought into the emergency department where he was evaluated. The patient was initially started on BiPAP but failed, so was intubated and sent to the ICU. HOSPITAL COURSE: Mr. Guzman was admitted to the ICU, was fluid resuscitated, started on pressors and broad-spectrum antibiotics. Fajardo catheter was attempted by the nursing staff; however, they were unable to do so Urology was consulted and the patient was seen by Dr. Foley and Fajardo catheter was successfully placed. Pulmonary Medicine was also consulted for ventilator management and ID was consulted as well. Unfortunately, despite the best efforts and current management Mr. Guzman's condition continues to decline. Palliative Medicine was consulted, the patient's family (the son Jaxon Guzman was spoken with and he made the patient DNR level 2, no CPR. At about 5:00 p.m. today Mr. Guzman went into sinus bradycardia and lost pulse. He was given multiple rounds of ACLS medications; however, he did not survive. He became completely asystolic at about 1714, at that point his pupils were extremely dilated and nonreactive. The patient was pale. No respiratory effort. No heart beat, and no response to even extremely painful stimulation. The patient did not have any signs of cortical or brainstem activity. He was subsequently pronounced and the son Mr. Jaxon Guzman was notified. cc: Jordi Dominguez MD
== END 2018-08-11 00:15 | disposition expired | DRG 871 ==
LOC: ED 22:14 → SUATTDRO 08-10 02:23 → ICU 08-10 02:23
PROVIDERS: ATTEND Internal Medicine
CPT/HCPCS: 71010; 71045; 80053; 81001; 82550; 82805; 82948; 83605; 83735; 84443; 84484; 85025; 85610; 85730; 87040; 87070; 87077; 87088; 93005; 94003; 94640; 94761; 96365; 96366; 96368; 96375; 99285; 99291; A9270; C9113; J0171; J0330; J1650; J1720; J1940; J2060; J2270; J2543; J3010; J3370; J7030; S0164; XXXXX